=== PATIENT | male | born 1995 | race Caucasian/White ===

== ENCOUNTER 2020-09-07 06:26 | Emergency (ER) | payer SELFPAY ==
[~2020-09-07] VITALS: Ht 172.7 cm; Wt 81.6 kg
[2020-09-07 06:55] VITALS: BP_SYST 107
--- NOTE | 2020-09-07 06:55 | NUR ---
BROUGHT INTO OUTSIDE TRIAGE TENT AND TRIAGED
--- NOTE | 2020-09-07 07:10 | NUR ---
PT STATES HE IS COVID + FOR LAST 10 DAYS AND JUST NOT GETTING BETTER. PT STATES HE IS ON MEDICATION FOR COVID BUT DOES NOT KNOW WHICH ONES. FAMILY AT BEDSIDE
--- NOTE | 2020-09-07 07:47 | NUR ---
DR JO OUT TO TRIAGE TENT TO EVALUATE PT.
[2020-09-07] MEDS ORDERED: ONDA4TAB5 PO (07:57)
[2020-09-07] MEDS ORDERED: ALBMDI INH (07:58)
[2020-09-07] MEDS ORDERED: TRAM50TA2 PO (08:02)
--- NOTE | 2020-09-07 08:18 | NUR ---
Patient given written and verbal discharge instructions and verbalizes understanding. ER MD discussed with patient the results and treatment provided. Patient in stable condition. ID arm band removed. Rx of ZOFRAN, TRAMADOL, ALBUTEROL given. Patient educated on pain management and to follow up with PMD. Pain Scale 0/10. Opportunity for questions provided and answered. Medication side effect fact sheet provided.
== END 2020-09-07 08:18 | disposition home or self-care (01) ==
LOC: SED 06:26
DX: U07.1 COVID-19 (principal); J12.89 Other viral pneumonia
CPT/HCPCS: 99283